=== PATIENT | female | born 1975 | race American Indian/Alaskan Native ===

== ENCOUNTER 2017-07-22 01:29 | Emergency (ER) | payer MEDICAID ==
[2017-07-22 02:39] LABS: Bacteria,Urine 2+ /HPF (Negative); Bilirubin,Urine NEG (Negative); Blood,Urine NEG (Negative); Color,Urine Yellow (Yellow); Mucus,Urine FEW /HPF; Nitrite,Urine NEG (Negative); Urobilinogen,Urine < 2.0 mg/dL (<2.0)
[2017-07-22 05:27] VITALS: BP 131/82
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
[2017-07-22] MEDS ORDERED: FLAGYL PO ONE (05:44)
[2017-07-22] MEDS ORDERED: FLAGYL ONE (05:45)
== END 2017-07-22 06:52 | disposition home or self-care (01) ==
LOC: ED 01:29
DX: N89.8 Other specified noninflammatory disorders of vagina (principal); M79.604 Pain in right leg
CPT/HCPCS: 36415; 81001; 84703; 87210; 87591

== ENCOUNTER 2017-12-29 10:26 | Emergency (ER) | payer MEDICAID ==
[2017-12-29 10:42] VITALS: BP 110/66
[2017-12-29] MEDS ORDERED: TORADOL IM ONE (11:06)
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
--- NOTE | 2017-12-29 12:04 | XRay Report ---
RIGHT FOOT: Trauma, pain. The bony architecture is intact. Bony alignment is normal. No soft tissue abnormalities are seen. The joint spaces appear preserved. IMPRESSION: Normal right foot.
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
== END 2017-12-29 13:00 | disposition home or self-care (01) ==
LOC: ED 10:26
DX: S93.601A Unspecified sprain of right foot, initial encounter (principal); V89.2XXA Person injured in unspecified motor-vehicle accident, traffic, initial encounter; Y93.89 Activity, other specified; Y99.8 Other external cause status; Y92.098 Other place in other non-institutional residence as the place of occurrence of the external cause
CPT/HCPCS: 73630; 96372; 99283; J1885

== ENCOUNTER 2019-01-06 06:28 | Emergency (ER) | payer MEDICAID ==
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
[2019-01-06 07:38] LABS: Bacteria,Urine 1+ /HPF (Negative); Bilirubin,Urine NEG (Negative); Blood,Urine LG (Negative); Color,Urine Yellow (Yellow); Mucus,Urine FEW /HPF; Protein,Urine <15 mg/dL mg/dL (Negative); Urobilinogen,Urine < 2.0 mg/dL (<2.0)
[2019-01-06 07:47] LABS: HCG Qualitative,Urine Negative (Negative)
[2019-01-06] MEDS ORDERED: IBUPROFEN PO ONE (08:17)
[2019-01-06 09:11] VITALS: BP 118/72
== END 2019-01-06 09:09 | disposition home or self-care (01) ==
LOC: ED 06:28
DX: A59.01 Trichomonal vulvovaginitis (principal); N39.0 Urinary tract infection, site not specified; H10.9 Unspecified conjunctivitis; N92.1 Excessive and frequent menstruation with irregular cycle; L30.4 Erythema intertrigo; F17.200 Nicotine dependence, unspecified, uncomplicated; F12.90 Cannabis use, unspecified, uncomplicated; Z79.899 Other long term (current) drug therapy
CPT/HCPCS: 81001; 81025; 87086; 87210; 87591; 99284

== ENCOUNTER 2019-08-15 13:32 | Emergency (ER) | payer MEDICAID ==
[2019-08-15 14:04] VITALS: BP 116/72
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
== END 2019-08-15 14:30 | disposition home or self-care (01) ==
LOC: ED 13:32
DX: S39.012A Strain of muscle, fascia and tendon of lower back, initial encounter (principal); S16.1XXA Strain of muscle, fascia and tendon at neck level, initial encounter; Z98.890 Other specified postprocedural states; Z79.899 Other long term (current) drug therapy; V49.49XA Driver injured in collision with other motor vehicles in traffic accident, initial encounter; Y93.89 Activity, other specified; Y92.410 Unspecified street and highway as the place of occurrence of the external cause; Y99.8 Other external cause status
CPT/HCPCS: 99282

== ENCOUNTER 2021-01-17 19:14 | Emergency (ER) | payer MEDICAID ==
[2021-01-17 19:23] VITALS: BP 142/92
[2021-01-17] MEDS ORDERED: HYDROcodone/ACETAMINOPHEN 5-325 MG TAB PO STA (20:37)
--- NOTE | 2021-01-17 21:10 | XRay Report ---
LEFT KNEE 3 VIEWS INDICATION / CLINICAL INFORMATION: KNEE EFFUSION AND PAIN COMPARISON: None available. FINDINGS: BONES / JOINT(S): No acute fracture or subluxation. Mild DJD greatest patellofemoral joint. SOFT TISSUES: Small joint effusion. ADDITIONAL FINDINGS: None. Signer Name: Zander Venegas MD Signed: 01/17/2021 9:06 PM Workstation Name: [id number]
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
== END 2021-01-17 22:45 | disposition home or self-care (01) ==
LOC: ED 19:14
DX: S86.812A Strain of other muscle(s) and tendon(s) at lower leg level, left leg, initial encounter (principal); Z79.899 Other long term (current) drug therapy; X58.XXXA Exposure to other specified factors, initial encounter; Y93.89 Activity, other specified; Y92.89 Other specified places as the place of occurrence of the external cause; Y99.8 Other external cause status
CPT/HCPCS: 99283